=== PATIENT | female | born 1970 ===

== ENCOUNTER 2023-05-02 12:57 | Outpatient (RCR) | payer OTHER, SELFPAY ==
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
== END 2023-06-07 11:41 | disposition still patient (30) ==
LOC: HO.SH 12:57
PROVIDERS: Visit Provider Physical Medicine & Rehabilitation
DX: S06.0XAD Concussion with loss of consciousness status unknown, subsequent encounter (principal); R41.841 Cognitive communication deficit
CPT/HCPCS: 96125

== ENCOUNTER 2023-08-19 14:00 | Outpatient (RCR) | payer OTHER, SELFPAY | END 2023-11-10 14:13 | disposition home or self-care (01) | LOC: HO.SH 14:00 | PROVIDERS: Visit Provider Physical Medicine & Rehabilitation | DX: R41.841 Cognitive communication deficit (principal); S06.0XAD Concussion with loss of consciousness status unknown, subsequent encounter | CPT/HCPCS: 92507 ==